=== PATIENT | female | born 2000 ===

== ENCOUNTER 2019-05-09 13:46 | Emergency (ER) | payer SELFPAY ==
[2019-05-09 14:29] VITALS: BP 109/56
--- NOTE | 2019-05-09 14:41 | Event Note ---
Date: 05/09/19 c/o low back pain, suprapubic discomfort for the past week. pain is worse with urination. Low back pain started after lifting something heavy. irregular menstrual cycles. H/o per sister in law who is translating for her.
[2019-05-09 14:58] LABS: HCG Qualitative,Urine Negative (Negative)
[2019-05-09 15:00] LABS: Bacteria,Urine 4+ /HPF (Negative); Bilirubin,Urine NEG (Negative); Blood,Urine SM (Negative); Color,Urine Yellow (Yellow); Mucus,Urine 3+ /HPF; Urobilinogen,Urine < 2.0 mg/dL (<2.0); WBC,Urine > 182.0 /HPF (0.0-6.0)
--- NOTE | 2019-05-09 15:55 | XRay Report ---
Examination: Lumbar spine radiograph series, 2 views, 05/09/2019 Clinical information: Low back pain. No history of trauma Comparison: None. Findings: There is gross normal alignment of the lumbar vertebral bodies. Vertebral body height and a lignment is well maintained. No significant bony degenerative changes are noted. Impression: No radiographic evidence of acute bony abnormality of the lumbar spine. Signer Name: Nette Bautista MD Signed: 05/09/2019 3:51 PM Workstation Name: [id number]
--- NOTE | 2019-05-09 16:02 | Emergency Department Report ---
ED Abdominal Pain HPI - General Chief Complaint: Abdominal Pain Stated Complaint: STOMACH PAIN Source: patient Mode of arrival: Ambulatory Limitations: Language Barrier - Related Data Previous Rx's Medication Instructions Recorded Last Taken Type Ibuprofen [Motrin] 800 mg PO Q8HR PRN #15 tablet 05/09/19 Unknown Rx cephALEXin [Keflex] 500 mg PO Q12HR #14 cap 05/09/19 Unknown Rx Allergies Allergy/AdvReac Type Severity Reaction Status Date / Time No Known Allergies Allergy Unverified 05/09/19 13:48 ED Review of Systems ROS: Stated complaint: STOMACH PAIN Other details as noted in HPI ED Past Medical Hx - Past Medical History Previous Medical History?: No Hx Asthma: No - Surgical History Past Surgical History?: Yes Hx Breast Surgery: Yes - Social History Smoking Status: Never Smoker Substance Use Type: None - Medications Home Medications: Home Medications Medication Instructions Recorded Confirmed Last Taken Type Ibuprofen [Motrin] 800 mg PO Q8HR PRN #15 tablet 05/09/19 Unknown Rx cephALEXin [Keflex] 500 mg PO Q12HR #14 cap 05/09/19 Unknown Rx ED Physical Exam - General Limitations: Language Barrier ED Course Vital Signs 05/09/19 14:27 Temperature 97.9 F Pulse Rate 93 H Respiratory 18 Rate Blood Pressure 109/56 O2 Sat by Pulse 98 Oximetry Critical care attestation.: If time is entered above; I have spent that time in minutes in the direct care of this critically ill patient, excluding procedure time. ED Disposition Condition: Stable Instructions: Abdominal Pain (ED) Prescriptions: cephALEXin [Keflex] 500 mg PO Q12HR #14 cap Ibuprofen [Motrin] 800 mg PO Q8HR PRN #15 tablet PRN Reason: Pain, Moderate (4-6) Referrals: JASE MCKAY MD [Primary Care Provider] - 3-5 Days
== END 2019-05-09 16:15 ==
LOC: ED 13:46
DX: R10.9 Unspecified abdominal pain (principal)
CPT/HCPCS: 72100; 81001; 81025

== ENCOUNTER 2019-08-03 20:02 | Emergency (ER) | payer SELFPAY ==
--- NOTE | 2019-08-03 21:10 | Emergency Department Report ---
Blank Doc - Documentation Documentation: 19-year-old female that presents with lower back pain. Stated is about 8 weeks . Denies any vaginal bleeding This initial assessment/diagnostic orders/clinical plan/treatment(s) is/are subject to change based on patient's health status, clinical progression and re-assessment by fellow clinical providers in the ED. Further treatment and workup at subsequent clinical providers discretion. Patient/guardians urged not to elope from the ED as their condition may be serious if not clinically assessed and managed. Initial orders include: 1- Patient sent to [facility] for further evaluation and treatment 3- UA 4- US OB
[2019-08-03 22:00] LABS: Bilirubin,Urine NEG (Negative); Blood,Urine NEG (Negative); Color,Urine Yellow (Yellow); Mucus,Urine 1+ /HPF; Protein,Urine <15 mg/dL mg/dL (Negative); Urobilinogen,Urine < 2.0 mg/dL (<2.0)
[2019-08-04] MEDS ORDERED: FLEXERIL PO ONE (00:09)
--- NOTE | 2019-08-04 00:41 | Emergency Department Report ---
ED Back Pain/Injury HPI - General Chief Complaint: Back Pain/Injury Stated Complaint: 8-9 WEEKS PREG SEVERE BACK PAIN Time Seen by Provider: 08/03/19 21:09 Source: patient (translation by family), family Limitations: No Limitations - History of Present Illness Initial Comments: Patient is a 19-year-old female presents emergency room with complaints of lower back pain that began yesterday. She denies any fall, injury, numbness, weakness, bowel or bladder incontinence, fever, vaginal bleeding, dysuria, vaginal discharge, abdominal pain. She took some Tylenol without much relief. States she is currently 8 or 9 weeks . She does not have an POWER WHEELCHAIR MECHANIC. No past medical history or allergies medications. /P:1/A:0 - Related Data Previous Rx's Medication Instructions Recorded Last Taken Type Ibuprofen [Motrin] 800 mg PO Q8HR PRN #15 tablet 05/09/19 Unknown Rx cephALEXin [Keflex] 500 mg PO Q12HR #14 cap 05/09/19 Unknown Rx Vit-Fe Fumar-FA [ 1 tab PO QDAY #30 tablet 08/04/19 Unknown Rx Vitamin] Allergies Allergy/AdvReac Type Severity Reaction Status Date / Time No Known Allergies Allergy Unverified 05/09/19 13:48 ED Review of Systems ROS: Stated complaint: 8-9 WEEKS PREG SEVERE BACK PAIN Other details as noted in HPI Comment: All other systems reviewed and negative ED Past Medical Hx - Past Medical History Previous Medical History?: No Hx Asthma: No - Surgical History Past Surgical History?: Yes Hx Breast Surgery: Yes Additional Surgical History: Csection x 1 - Social History Smoking Status: Never Smoker - Medications Home Medications: Home Medications Medication Instructions Recorded Confirmed Last Taken Type Ibuprofen [Motrin] 800 mg PO Q8HR PRN #15 tablet 05/09/19 Unknown Rx cephALEXin [Keflex] 500 mg PO Q12HR #14 cap 05/09/19 Unknown Rx Vit-Fe Fumar-FA [ 1 tab PO QDAY #30 tablet 08/04/19 Unknown Rx Vitamin] ED Physical Exam - General Limitations: No Limitations General appearance: alert, in no apparent distress - Head Head exam: Present: atraumatic, normocephalic - Eye Eye exam: Present: normal appearance - ENT ENT exam: Present: mucous membranes moist - Neck Neck exam: Present: normal inspection, full ROM. Absent: tenderness - Respiratory Respiratory exam: Present: normal lung sounds bilaterally. Absent: respiratory distress, wheezes, rales, rhonchi, stridor, chest wall tenderness, accessory muscle use, decreased breath sounds, prolonged expiratory - Cardiovascular Cardiovascular Exam: Present: regular rate, normal rhythm, normal heart sounds. Absent: systolic murmur, diastolic murmur, rubs, gallop - GI/Abdominal GI/Abdominal exam: Present: soft, normal bowel sounds. Absent: distended, tenderness, guarding, rebound, rigid - Back Exam Back exam: Present: normal inspection, full ROM, paraspinal tenderness (bilateral lumbar paraspinal muscular TTP, no midline C-spine, T-spine, or L- spine tenderness, no step offs, no deformities). Absent: vertebral tenderness - Neurological Exam Neurological exam: Present: alert, oriented X3, CN II-XII intact, normal gait. Absent: motor sensory deficit - Psychiatric Psychiatric exam: Present: normal affect, normal mood - Skin Skin exam: Present: warm, dry, intact ED Course Vital Signs 08/03/19 08/04/19 20:36 03:06 Temperature 97.9 F Pulse Rate 61 66 Respiratory 16 16 Rate Blood Pressure 102/53 99/47 [Right] O2 Sat by Pulse 100 100 Oximetry ED Medical Decision Making - Lab Data Lab Results 08/03/19 08/03/19 Range/Units 21:12 21:24 HCG, Quant [id number] H (0-4) mIU/mL Urine Color Yellow (Yellow) Urine Turbidity Clear (Clear) Urine pH 5.0 (5.0-7.0) Ur Specific [place] 1.014 (1.003-1.030) Urine Protein <15 mg/dl (Negative) mg/dL Urine Glucose (UA) Neg (Negative) mg/dL Urine Ketones Neg (Negative) mg/dL Urine Blood Neg (Negative) Urine Nitrite Neg (Negative) Urine Bilirubin Neg (Negative) Urine Urobilinogen < 2.0 (<2.0) mg/dL Ur Leukocyte Esterase Neg (Negative) Urine WBC (Auto) 1.0 (0.0-6.0) /HPF Urine RBC (Auto) 1.0 (0.0-6.0) /HPF U Epithel Cells (Auto) 2.0 (0-13.0) /HPF Urine Mucus 1+ /HPF - Radiology Data Radiology results: report reviewed ULTRASOUND OBSTETRIC Indication: back pains with . Findings: There is a single, living intrauterine . [place]-rump length = 3.6 cm = 10 weeks, 3 day(s). heart rate is 163 beats per minute. The ovaries are normal. There is no free fluid. Impression: Single, living intrauterine with estimated sonographic age of 11 weeks, 4 day(s). Signer Name: Joey Hanson MD Signed: 08/04/2019 1:42 AM Workstation Name: [id number] Transcribed By: JACLYN Dictated By: Joey Hanson MD Electronically Authenticated By: Joey Hanson MD Signed Date/Time: 08/04/19 0142 - Medical Decision Making Patient is a 19-year-old female presents emergency room with complaints of lower back pain that began yesterday. She denies any fall, injury, numbness, weakness, bowel or bladder incontinence, fever, vaginal bleeding, dysuria, vaginal discharge, abdominal pain. She took some Tylenol without much relief. States she is currently 8 or 9 weeks . She does not have an POWER WHEELCHAIR MECHANIC. No past medical history or allergies medications. /P:1/A:0. vitals are normal on exam: bilateral lumbar paraspinal muscular TTP, no midline C-spine, T-spine, or L-spine tenderness, no step offs, no deformities, no focal neuro deficits. UA without evidence of UTI. OB US shows: Single, living intrauterine with estimated sonographic age of 11 weeks, 4 day(s). pt given 5mg of flexeril and symptoms improved. discussed all results with pt. advised pt to Please increase your water intake and take a daily vitamin [id number]. May use ice packs, heating pad, rest, epsom salt bath. Take Tylenol for any discomfort. Follow-up with a POWER WHEELCHAIR MECHANIC in the next 2-3 days to receive your care, listed several clinics below. Return to the emergency room for any new or worsening symptoms. all interpretation was performed by her mother - Differential Diagnosis strain, sprain, sciatica, UTI, IUP, ectopic, ovarian cyst, subchorionic hem Critical care attestation.: If time is entered above; I have spent that time in minutes in the direct care of this critically ill patient, excluding procedure time. ED Disposition Clinical Impression: Lower back pain Qualifiers: Chronicity: acute Back pain laterality: bilateral Sciatica presence: without sciatica Qualified Code(s): M54.5 - Low back pain Qualifiers: Weeks of gestation: 11 weeks Qualified Code(s): Z3A.11 - 11 weeks gestation of Disposition: DC-01 TO HOME OR SELFCARE Is pt being admited?: No Does the pt Need Aspirin: No Condition: Stable Instructions: (ED), Low Back Strain (ED) Additional Instructions: Please increase your water intake and take a daily vitamin [id number]. May use ice packs, heating pad, rest, epsom salt bath. Take Tylenol for any discomfort. Follow-up with a POWER WHEELCHAIR MECHANIC in the next 2-3 days to receive your care, listed several clinics below. Return to the emergency room for any new or worsening symptoms. Prescriptions: Vit-Fe Fumar-FA [ Vitamin] 1 tab PO QDAY #30 tablet Referrals: [facility] [Provider Group] - 2-3 Days [facility] [Provider Group] - 2-3 Days [facility] [Provider Group] - 2-3 Days Forms: Work/School Release Form(ED) Time of Disposition: 02:17 Print Language: SINHALA
--- NOTE | 2019-08-04 01:47 | Ultrasound Report ---
ULTRASOUND OBSTETRIC Indication: back pains with . Findings: There is a single, living intrauterine . [place]-rump length = 3.6 cm = 10 weeks, 3 day(s). heart rate is 163 beats per minute. The ovaries are normal. There is no free fluid. Impression: Single, living intrauterine with estimated sonographic age of 11 weeks, 4 day(s). Signer Name: Joey Hanson MD Signed: 08/04/2019 1:42 AM Workstation Name: [email or web address]
[2019-08-04 03:06] VITALS: BP 99/47
== END 2019-08-04 03:06 | disposition home or self-care (01) ==
LOC: ED 20:02
DX: O9A.211 Injury, poisoning and certain other consequences of external causes complicating pregnancy, first trimester (principal); M54.5 Low back pain; Z79.899 Other long term (current) drug therapy; Z3A.11 11 weeks gestation of pregnancy
CPT/HCPCS: 36415; 76801; 76817; 81001; 84702; 99284

== ENCOUNTER 2020-02-26 23:21 | Outpatient (CLI) | payer OTHER ==
[2020-02-27 00:33] VITALS: BP 119/72
[2020-02-27] MEDS ORDERED: LACTATED RINGERS 1,000 ML IV SCH (02:00)
== END 2020-02-27 02:59 | disposition home or self-care (01) ==
LOC: TRG 23:21 → APU 23:22 → TRG 02-27 02:59
PROVIDERS: ATTEND Obstetrics & Gynecology
DX: O47.03 False labor before 37 completed weeks of gestation, third trimester (principal); Z3A.39 39 weeks gestation of pregnancy
CPT/HCPCS: 59025

== ENCOUNTER 2020-02-29 17:19 | Outpatient (CLI) | payer OTHER ==
[2020-02-29 21:48] VITALS: BP 101/65
--- NOTE | 2020-02-29 23:07 | Ultrasound Report ---
Limited OB ultrasound INDICATION: , evaluate amniotic fluid index FINDINGS: Single intrauterine is identified. The fetus is in a cephalic presentation. Amnio tic fluid index is 9.3 cm which is within normal limits. The heart rate is 133 bpm. IMPRESSION: Amniotic fluid index is 9.3 cm. BIOPHYSICAL PROFILE INDICATION: COMPARISON: None FINDINGS: breathing movement: 2/2 movement: 2/2 posture and tone: 2/2 Qualitative amniotic fluid volume: 2/2 IMPRESSION: Total score for biophysical profile is 8/8 heart rate is 133 bpm Signer Name: Stan Johnson MD Signed: 02/29/2020 11:02 PM Workstation Name: [id number]
== END 2020-02-29 22:15 | disposition home or self-care (01) ==
LOC: TRG 17:19 → APU 17:20 → TRG 22:15
PROVIDERS: ATTEND Obstetrics & Gynecology
DX: O09.893 Supervision of other high risk pregnancies, third trimester (principal); Z3A.40 40 weeks gestation of pregnancy
CPT/HCPCS: 59025; 76815; 76819

== ENCOUNTER 2020-03-01 10:14 | Inpatient (IN) | payer OTHER ==
[2020-03-01] MEDS ORDERED: LACTATED RINGERS 1,000 ML ONE (11:01)
[2020-03-01 11:49] LABS: Basophils % (Auto) 0.3 % (0.0-1.8); Eosinophils # (Auto) 0.1 K/mm3 (0.0-0.4); Eosinophils % (Auto) 1.1 % (0.0-4.3); Hematocrit 37.2 % (30.3-42.9); Hemoglobin 12.1 gm/dl (10.1-14.3); Lymphocytes # (Auto) 2.1 K/mm3 (1.2-5.4); Lymphocytes % (Auto) 23.2 % (13.4-35.0); Mean Corpuscular HGB Conc 33 % (30-34); Mean Corpuscular Volume 88 fl (79-97); Monocytes # (Auto) 0.6 K/mm3 (0.0-0.8); Monocytes % (Auto) 6.9 % (0.0-7.3); Platelet Count 250 K/mm3 (140-440); Red Blood Count 4.23 M/mm3 (3.65-5.03); Red Cell Distribution Width 13.9 % (13.2-15.2)
[2020-03-01] MEDS: LACTATED RINGERS 1,000 ML IV SCH ×3 (11:56→18:34)
[2020-03-01] MEDS ORDERED: AMPICILLIN/NS 2 GM/100 ML 2 GM/100 ML BAG IV ONE (11:58)
[2020-03-01] MEDS ORDERED: TERBUTALINE 1 MG/1 ML INJ IVP PRN (11:58)
[2020-03-01] MEDS ORDERED: MINERAL OIL 30 ML ORAL LIQD PO PRN (11:58)
[2020-03-01] MEDS ORDERED: BUTORPHANOL 2 MG/1 ML INJ IV PRN ×2 (11:58)
[2020-03-01] MEDS ORDERED: ePHEDrine SULFATE 50 MG/1 ML INJ IV PRN ×2 (11:58→13:54)
[2020-03-01] MEDS ORDERED: TERBUTALINE 1 MG/1 ML INJ SUB-Q PRN (11:58)
[2020-03-01] MEDS ORDERED: LIDOCAINE (2%) 20 MG/1 ML VIAL 20 ML MDV INFILTRATI ONE (11:58)
[2020-03-01] MEDS ORDERED: LACTATED RINGERS 1,000 ML IV SCH (12:00)
[2020-03-01] MEDS ORDERED: OXYTOCIN DRIP 30 UNITS/500 ML BAG IV SCH ×2 (12:00)
[2020-03-01] MEDS ORDERED: OXYTOCIN 20 UNIT/1000ML DRIP 20 UNITS/1,000 ML BAG IV SCH (12:00)
[2020-03-01] MEDS ORDERED: fentaNYL 100 MCG/2 ML INJ IV ONE (13:00)
--- NOTE | 2020-03-01 13:23 | History and Physical Report ---
History of Present Illness Date of examination: 03/01/20 Date of admission: 03/01/20 12:15 Chief complaint: Contractions, previous c/section desires TOLAC Past History Past Surgical History: section - Obstetrical History : 2 Medications and Allergies Allergies Allergy/AdvReac Type Severity Reaction Status Date / Time No Known Allergies Allergy Verified 03/01/20 11:10 Home Medications Medication Instructions Recorded Confirmed Last Taken Type Ibuprofen [Motrin] 800 mg PO Q8HR PRN #15 tablet 05/09/19 03/01/20 8 Months Ago Rx ~07/02/19 800 mg cephALEXin [Keflex] 500 mg PO Q12HR #14 cap 05/09/19 03/01/20 1 Day Ago Rx ~02/29/20 500 mg Vit-Fe Fumar-FA [ 1 tab PO QDAY #30 tablet 08/04/19 03/01/20 1 Day Ago Rx Vitamin] ~02/29/20 1 tab Active Meds: Active Medications Butorphanol Tartrate (Stadol) 1 mg IV Q2H PRN PRN Reason: Pain, Moderate(4-6) LABOR PAIN Butorphanol Tartrate (Stadol) 2 mg IV Q2H PRN PRN Reason: Pain , Severe (7-10) Ephedrine Sulfate (Ephedrine Sulfate) 10 mg IV Q2M PRN PRN Reason: Hypotension Lactated Ringer's (Lactated Ringers) 1,000 mls @ 125 mls/hr IV DIRECT SUSY Last Admin: 03/01/20 12:23 Dose: 125 mls/hr Documented by: Oxytocin/Sodium Chloride (Pitocin/Ns 20 Unit/1000ml Drip) 20 units in 1,000 mls @ 125 mls/hr IV DIRECT SUSY Oxytocin/Sodium Chloride (Pitocin/Ns 30 Unit/500ml) 30 units in 500 mls @ 1 mls/hr IV TITR SUSY; Protocol Oxytocin/Sodium Chloride (Pitocin/Ns 30 Unit/500ml) 30 units in 500 mls @ 0 mls/hr IV TITR SUSY; Protocol Mineral Oil (Mineral Oil) 30 ml PO QHS PRN PRN Reason: Constipation Terbutaline Sulfate (Brethine) 0.25 mg SUB-Q ONCE PRN PRN Reason: Hyperstimulation/Hypertonicity Terbutaline Sulfate (Brethine) 0.25 mg IVP ONCE PRN PRN Reason: Hyperstimulation/Hypertonicity - Vital Signs Vital signs: Vital Signs Pulse Pulse Ox 80 100 03/01/20 11:06 03/01/20 11:06 Temp Pulse Resp BP Pulse Ox 97.6 F 85 20 114/68 100 03/01/20 11:11 03/01/20 13:20 03/01/20 11:11 03/01/20 13:20 03/01/20 11:56 - Physical Exam Breasts: Positive: deferred Cardiovascular: Regular rate Lungs: Positive: Clear to auscultation Abdomen: Positive: normal appearance, normal bowel sounds - Obstetrical FHR: category 1 Uterine Contraction Monitor Mode: External Cervical Dilatation: 2 Cervical Effacement Percentage: 50 station: -2 Results Result Diagrams: 03/01/20 11:15 All other labs normal. Assessment and Plan epidural trial of labor labs GBS prophylaxis expect physician in house Roel ROJAS
[2020-03-01] MEDS ORDERED: NALOXONE 2 MG/2 ML INJ IV PRN (13:54)
[2020-03-01 14:13] LABS: Hematocrit 33.3 % (30.3-42.9); Mean Corpuscular HGB Conc 33 % (30-34); Mean Corpuscular Volume 88 fl (79-97); Platelet Count 233 K/mm3 (140-440); Red Cell Distribution Width 14.1 % (13.2-15.2)
[2020-03-01] MEDS: fentaNYL-BUPIV 2 MCG/ML-0.125% 200 MCG/100 ML BAG EPIDURAL SCH ×2 (14:56→22:57)
--- NOTE | 2020-03-01 15:20 | Progress Note ---
Subjective - Subjective Date of service: 03/01/20 Principal diagnosis: TOLAC Interval history: 20yo , TOLAC SP epidural on oxyocin per protocol cervix 2cm,80%/-1 AROM thin meconium with no complications FHT 125 baseline,moderate variability,+ve accels: Category 1 Ali Chuk: Q1-2 minutes Maternal/ well-being reassuring overall. Continue current management. Anna Leonard MD Objective - Vital Signs Vital Signs: Vital Signs - 12hr 03/01/20 03/01/20 03/01/20 11:06 11:07 11:11 Temperature 97.6 F Pulse Rate 80 80 89 Respiratory 20 Rate Blood Pressure 107/60 Blood Pressure 107/60 [Right] O2 Sat by Pulse 100 99 Oximetry 03/01/20 03/01/20 03/01/20 11:16 11:21 11:26 Temperature Pulse Rate 72 75 79 Respiratory Rate Blood Pressure Blood Pressure [Right] O2 Sat by Pulse 100 99 100 Oximetry 03/01/20 03/01/20 03/01/20 11:31 11:36 11:41 Temperature Pulse Rate 75 70 79 Respiratory Rate Blood Pressure Blood Pressure [Right] O2 Sat by Pulse 100 100 99 Oximetry 03/01/20 03/01/20 03/01/20 11:46 11:51 11:52 Temperature Pulse Rate 80 79 78 Respiratory Rate Blood Pressure Blood Pressure [Right] O2 Sat by Pulse 100 100 88 Oximetry 03/01/20 03/01/20 03/01/20 11:56 12:19 12:50 Temperature Pulse Rate 85 68 66 Respiratory Rate Blood Pressure 107/69 109/68 Blood Pressure [Right] O2 Sat by Pulse 100 Oximetry 03/01/20 03/01/20 03/01/20 13:20 13:48 13:51 Temperature Pulse Rate 85 67 80 Respiratory Rate Blood Pressure 114/68 117/74 Blood Pressure [Right] O2 Sat by Pulse 100 Oximetry 03/01/20 03/01/20 03/01/20 13:53 13:57 13:58 Temperature Pulse Rate 84 80 72 Respiratory Rate Blood Pressure 118/75 Blood Pressure [Right] O2 Sat by Pulse 100 100 Oximetry 03/01/20 03/01/20 03/01/20 14:00 14:03 14:06 Temperature 97.9 F Pulse Rate 78 75 67 Respiratory 18 Rate Blood Pressure 126/76 121/66 Blood Pressure [Right] O2 Sat by Pulse 87 100 Oximetry 03/01/20 03/01/20 03/01/20 14:08 14:11 14:13 Temperature Pulse Rate 76 75 100 H Respiratory Rate Blood Pressure 126/71 Blood Pressure [Right] O2 Sat by Pulse 100 82 L 100 Oximetry 03/01/20 03/01/20 03/01/20 14:18 14:21 14:23 Temperature Pulse Rate 83 86 75 Respiratory Rate Blood Pressure 116/57 Blood Pressure [Right] O2 Sat by Pulse 100 100 Oximetry 03/01/20 03/01/20 03/01/20 14:26 14:28 14:31 Temperature Pulse Rate 74 78 66 Respiratory Rate Blood Pressure 114/64 110/61 Blood Pressure [Right] O2 Sat by Pulse 100 Oximetry 03/01/20 03/01/20 03/01/20 14:33 14:36 14:38 Temperature Pulse Rate 68 71 77 Respiratory Rate Blood Pressure 102/60 Blood Pressure [Right] O2 Sat by Pulse 100 97 Oximetry 03/01/20 03/01/20 03/01/20 14:41 14:43 14:47 Temperature Pulse Rate 71 72 72 Respiratory Rate Blood Pressure 108/65 107/58 Blood Pressure [Right] O2 Sat by Pulse 100 Oximetry 03/01/20 03/01/20 03/01/20 14:48 14:52 14:53 Temperature Pulse Rate 71 90 76 Respiratory Rate Blood Pressure 104/60 Blood Pressure [Right] O2 Sat by Pulse 100 100 Oximetry 03/01/20 03/01/20 03/01/20 14:57 14:58 15:01 Temperature Pulse Rate 78 71 69 Respiratory Rate Blood Pressure 108/57 108/60 Blood Pressure [Right] O2 Sat by Pulse 100 Oximetry 03/01/20 03/01/20 03/01/20 15:03 15:08 15:13 Temperature Pulse Rate 69 79 67 Respiratory Rate Blood Pressure Blood Pressure [Right] O2 Sat by Pulse 100 100 100 Oximetry - Labs Labs: Laboratory Results - last 24 hr 03/01/20 03/01/20 03/01/20 11:15 11:15 11:15 WBC 8.9 RBC 4.23 Hgb 12.1 Hct 37.2 MCV 88 MCH 29 MCHC 33 RDW 13.9 Plt Count 250 Lymph % (Auto) 23.2 Coal % (Auto) 6.9 Eos % (Auto) 1.1 Baso % (Auto) 0.3 Lymph # 2.1 Coal # 0.6 Eos # 0.1 Baso # 0.0 Seg Neutrophils % 68.5 Seg Neutrophils # 6.1 Syphilis IgG Antibody Non-reactive Blood Type AB POSITIVE Antibody Screen Negative 03/01/20 13:20 WBC 9.3 RBC 3.80 Hgb 11.0 Hct 33.3 MCV 88 MCH 29 MCHC 33 RDW 14.1 Plt Count 233 Lymph % (Auto) Coal % (Auto) Eos % (Auto) Baso % (Auto) Lymph # Coal # Eos # Baso # Seg Neutrophils % Seg Neutrophils # Syphilis IgG Antibody Blood Type Antibody Screen
--- NOTE | 2020-03-01 15:30 | Anesthesia Consultation ---
Anesthesia Consult and Med Hx Date of service: 03/01/20 - Airway Anesthetic Teeth Evaluation: Good ROM Head & Neck: Adequate Mental/Hyoid Distance: Adequate Mallampati Class: Class II Intubation Access Assessment: Probably Good - Pulmonary Exam CTA: Yes - Cardiac Exam Cardiac Exam: RRR - Pre-Operative Health Status ASA Pre-Surgery Classification: ASA2 Proposed Anesthetic Plan: Epidural - Pulmonary Hx Smoking: No Hx Asthma: No Hx Respiratory Symptoms: No SOB: No COPD: No Home Oxygen Therapy: No Hx Pneumonia: No Hx Sleep Apnea: No - Cardiovascular System Hx Hypertension: No Hx Coronary Artery Disease: No Hx Heart Attack/AMI: No Hx Angina: No Hx Percutaneous Transluminal Coronary Angioplasty (PTCA): No Hx Cardia Arrhythmia: No Hx Pacemaker: No Hx Internal Defibrillator: No Hx Valvular Heart Disease: No Hx Heart Murmur: No Hx Peripheral Vascular Disease: No - Central Nervous System Hx Neuromuscular Disorder: No Hx Seizures: No CVA: No Hx Back Pain: No Hx Psychiatric Problems: No - Gastrointestinal Hx Ulcer: No Hx Gastroesophageal Reflux Disease: No - Endocrine Hx Renal Disease: No Hx End Stage Renal Disease: No Hx Cirrhosis: No Hx Liver Disease: No Hx Insulin Dependent Diabetes: No Hx Non-Insulin Dependent Diabetes: No Hx Thyroid Disease: No Hx Hypothyroidism: No Hx Hyperthyroidism: No - Hematic Hx Anemia: No Hx Sickle Cell Disease: No - Other Systems Hx Alcohol Use: No Hx Substance Use: No Hx Cancer: No Hx Obesity: No - Additional Comments Anesthesia Medical History Comments: PSH:
--- NOTE | 2020-03-01 15:39 | Progress Note ---
Labor Epidural - Labor Epidural Start Time: 14:04 Stop Time: 14:15 Performed by:: ULICES MORIN Procedure: Patient is requesting a laboring epidural for laboring pain. Patient IDed, H&P reviewed, all questions and concerns were answered, and consent was signed. Timeout was performed at bedside. Patient in sitting position. Sterile prep and drape was performed. [5] ml of 1% lidocaine skin wheal at L[3]- L [4]. 18- gauge Touhy epidural needle was advanced to loss of resistance with air technique 6cm. Negative CSF negative blood. Epidural catheter advanced to [12] centimeters. [negative] Aspiration [negative] test dose. Sterile dressing applied. Patient tolerated procedure.
--- NOTE | 2020-03-01 17:39 | Progress Note ---
Subjective - Subjective Date of service: 03/01/20 Principal diagnosis: TOLAC Interval history: 20yo , TOLAC on oxyocin per protocol at 4mu/min cervix cm,80%/-1 FHT 125 baseline,moderate variability,+ve accels: Category 1 [place]: Q1-2 minutes Maternal/ well-being reassuring overall. Continue current management. Anna Leonard MD Objective - Vital Signs Vital Signs: Vital Signs - 12hr 03/01/20 03/01/20 03/01/20 11:06 11:07 11:11 Temperature 97.6 F Pulse Rate 80 80 89 Respiratory 20 Rate Blood Pressure 107/60 Blood Pressure 107/60 [Right] O2 Sat by Pulse 100 99 Oximetry 03/01/20 03/01/20 03/01/20 11:16 11:21 11:26 Temperature Pulse Rate 72 75 79 Respiratory Rate Blood Pressure Blood Pressure [Right] O2 Sat by Pulse 100 99 100 Oximetry 03/01/20 03/01/20 03/01/20 11:31 11:36 11:41 Temperature Pulse Rate 75 70 79 Respiratory Rate Blood Pressure Blood Pressure [Right] O2 Sat by Pulse 100 100 99 Oximetry 03/01/20 03/01/20 03/01/20 11:46 11:51 11:52 Temperature Pulse Rate 80 79 78 Respiratory Rate Blood Pressure Blood Pressure [Right] O2 Sat by Pulse 100 100 88 Oximetry 03/01/20 03/01/20 03/01/20 11:56 12:19 12:50 Temperature Pulse Rate 85 68 66 Respiratory Rate Blood Pressure 107/69 109/68 Blood Pressure [Right] O2 Sat by Pulse 100 Oximetry 03/01/20 03/01/20 03/01/20 13:20 13:48 13:51 Temperature Pulse Rate 85 67 80 Respiratory Rate Blood Pressure 114/68 117/74 Blood Pressure [Right] O2 Sat by Pulse 100 Oximetry 03/01/20 03/01/20 03/01/20 13:53 13:57 13:58 Temperature Pulse Rate 84 80 72 Respiratory Rate Blood Pressure 118/75 Blood Pressure [Right] O2 Sat by Pulse 100 100 Oximetry 03/01/20 03/01/20 03/01/20 14:00 14:03 14:06 Temperature 97.9 F Pulse Rate 78 75 67 Respiratory 18 Rate Blood Pressure 126/76 121/66 Blood Pressure [Right] O2 Sat by Pulse 87 100 Oximetry 03/01/20 03/01/20 03/01/20 14:08 14:11 14:13 Temperature Pulse Rate 76 75 100 H Respiratory Rate Blood Pressure 126/71 Blood Pressure [Right] O2 Sat by Pulse 100 82 L 100 Oximetry 03/01/20 03/01/20 03/01/20 14:18 14:21 14:23 Temperature Pulse Rate 83 86 75 Respiratory Rate Blood Pressure 116/57 Blood Pressure [Right] O2 Sat by Pulse 100 100 Oximetry 03/01/20 03/01/20 03/01/20 14:26 14:28 14:31 Temperature Pulse Rate 74 78 66 Respiratory Rate Blood Pressure 114/64 110/61 Blood Pressure [Right] O2 Sat by Pulse 100 Oximetry 03/01/20 03/01/20 03/01/20 14:33 14:36 14:38 Temperature Pulse Rate 68 71 77 Respiratory Rate Blood Pressure 102/60 Blood Pressure [Right] O2 Sat by Pulse 100 97 Oximetry 03/01/20 03/01/20 03/01/20 14:41 14:43 14:47 Temperature Pulse Rate 71 72 72 Respiratory Rate Blood Pressure 108/65 107/58 Blood Pressure [Right] O2 Sat by Pulse 100 Oximetry 03/01/20 03/01/20 03/01/20 14:48 14:52 14:53 Temperature Pulse Rate 71 90 76 Respiratory Rate Blood Pressure 104/60 Blood Pressure [Right] O2 Sat by Pulse 100 100 Oximetry 03/01/20 03/01/20 03/01/20 14:57 14:58 15:01 Temperature Pulse Rate 78 71 69 Respiratory Rate Blood Pressure 108/57 108/60 Blood Pressure [Right] O2 Sat by Pulse 100 Oximetry 03/01/20 03/01/20 03/01/20 15:03 15:08 15:13 Temperature Pulse Rate 69 79 67 Respiratory Rate Blood Pressure Blood Pressure [Right] O2 Sat by Pulse 100 100 100 Oximetry 03/01/20 03/01/20 03/01/20 15:18 15:23 15:28 Temperature Pulse Rate 68 69 73 Respiratory Rate Blood Pressure Blood Pressure [Right] O2 Sat by Pulse 100 99 99 Oximetry 03/01/20 03/01/20 03/01/20 15:33 15:38 15:43 Temperature Pulse Rate 83 73 74 Respiratory Rate Blood Pressure 90/51 Blood Pressure [Right] O2 Sat by Pulse 99 99 100 Oximetry 03/01/20 03/01/20 03/01/20 15:48 15:53 15:58 Temperature Pulse Rate 71 82 74 Respiratory Rate Blood Pressure Blood Pressure [Right] O2 Sat by Pulse 99 100 99 Oximetry 03/01/20 03/01/20 03/01/20 16:08 16:37 17:07 Temperature Pulse Rate 70 68 69 Respiratory Rate Blood Pressure 97/53 94/52 89/52 Blood Pressure [Right] O2 Sat by Pulse Oximetry 03/01/20 03/01/20 17:08 17:37 Temperature 97.3 F L Pulse Rate 78 Respiratory 18 Rate Blood Pressure 101/61 Blood Pressure [Right] O2 Sat by Pulse Oximetry - Labs Labs: Laboratory Results - last 24 hr 03/01/20 03/01/20 03/01/20 11:15 11:15 11:15 WBC 8.9 RBC 4.23 Hgb 12.1 Hct 37.2 MCV 88 MCH 29 MCHC 33 RDW 13.9 Plt Count 250 Lymph % (Auto) 23.2 [place] % (Auto) 6.9 Eos % (Auto) 1.1 Baso % (Auto) 0.3 Lymph # 2.1 [place] # 0.6 Eos # 0.1 Baso # 0.0 Seg Neutrophils % 68.5 Seg Neutrophils # 6.1 Syphilis IgG Antibody Non-reactive Blood Type AB POSITIVE Antibody Screen Negative 03/01/20 13:20 WBC 9.3 RBC 3.80 Hgb 11.0 Hct 33.3 MCV 88 MCH 29 MCHC 33 RDW 14.1 Plt Count 233 Lymph % (Auto) [place] % (Auto) Eos % (Auto) Baso % (Auto) Lymph # [place] # Eos # Baso # Seg Neutrophils % Seg Neutrophils # Syphilis IgG Antibody Blood Type Antibody Screen
--- NOTE | 2020-03-01 21:09 | Progress Note ---
Subjective - Subjective Date of service: 03/01/20 Principal diagnosis: TOLAC Interval history: 20yo , TOLAC on oxyocin per protocol at 4mu/min cervix 4-5cm,80%/0 FHT 125 baseline,moderate variability,+ve accels, variables with early component noted: Category 1 [place]: Q1-2 minutes Maternal/ well-being reassuring overall. Continue current management. Increase pitocin to 6mu/scott Anna Leonard MD Objective - Vital Signs Vital Signs: Vital Signs - 12hr 03/01/20 03/01/20 03/01/20 11:06 11:07 11:11 Temperature 97.6 F Pulse Rate 80 80 89 Respiratory 20 Rate Blood Pressure 107/60 Blood Pressure 107/60 [Right] O2 Sat by Pulse 100 99 Oximetry 03/01/20 03/01/20 03/01/20 11:16 11:21 11:26 Temperature Pulse Rate 72 75 79 Respiratory Rate Blood Pressure Blood Pressure [Right] O2 Sat by Pulse 100 99 100 Oximetry 03/01/20 03/01/20 03/01/20 11:31 11:36 11:41 Temperature Pulse Rate 75 70 79 Respiratory Rate Blood Pressure Blood Pressure [Right] O2 Sat by Pulse 100 100 99 Oximetry 03/01/20 03/01/20 03/01/20 11:46 11:51 11:52 Temperature Pulse Rate 80 79 78 Respiratory Rate Blood Pressure Blood Pressure [Right] O2 Sat by Pulse 100 100 88 Oximetry 03/01/20 03/01/20 03/01/20 11:56 12:19 12:50 Temperature Pulse Rate 85 68 66 Respiratory Rate Blood Pressure 107/69 109/68 Blood Pressure [Right] O2 Sat by Pulse 100 Oximetry 03/01/20 03/01/20 03/01/20 13:20 13:48 13:51 Temperature Pulse Rate 85 67 80 Respiratory Rate Blood Pressure 114/68 117/74 Blood Pressure [Right] O2 Sat by Pulse 100 Oximetry 03/01/20 03/01/20 03/01/20 13:53 13:57 13:58 Temperature Pulse Rate 84 80 72 Respiratory Rate Blood Pressure 118/75 Blood Pressure [Right] O2 Sat by Pulse 100 100 Oximetry 03/01/20 03/01/20 03/01/20 14:00 14:03 14:06 Temperature 97.9 F Pulse Rate 78 75 67 Respiratory 18 Rate Blood Pressure 126/76 121/66 Blood Pressure [Right] O2 Sat by Pulse 87 100 Oximetry 03/01/20 03/01/20 03/01/20 14:08 14:11 14:13 Temperature Pulse Rate 76 75 100 H Respiratory Rate Blood Pressure 126/71 Blood Pressure [Right] O2 Sat by Pulse 100 82 L 100 Oximetry 03/01/20 03/01/20 03/01/20 14:18 14:21 14:23 Temperature Pulse Rate 83 86 75 Respiratory Rate Blood Pressure 116/57 Blood Pressure [Right] O2 Sat by Pulse 100 100 Oximetry 03/01/20 03/01/20 03/01/20 14:26 14:28 14:31 Temperature Pulse Rate 74 78 66 Respiratory Rate Blood Pressure 114/64 110/61 Blood Pressure [Right] O2 Sat by Pulse 100 Oximetry 03/01/20 03/01/20 03/01/20 14:33 14:36 14:38 Temperature Pulse Rate 68 71 77 Respiratory Rate Blood Pressure 102/60 Blood Pressure [Right] O2 Sat by Pulse 100 97 Oximetry 03/01/20 03/01/20 03/01/20 14:41 14:43 14:47 Temperature Pulse Rate 71 72 72 Respiratory Rate Blood Pressure 108/65 107/58 Blood Pressure [Right] O2 Sat by Pulse 100 Oximetry 03/01/20 03/01/20 03/01/20 14:48 14:52 14:53 Temperature Pulse Rate 71 90 76 Respiratory Rate Blood Pressure 104/60 Blood Pressure [Right] O2 Sat by Pulse 100 100 Oximetry 03/01/20 03/01/20 03/01/20 14:57 14:58 15:01 Temperature Pulse Rate 78 71 69 Respiratory Rate Blood Pressure 108/57 108/60 Blood Pressure [Right] O2 Sat by Pulse 100 Oximetry 03/01/20 03/01/20 03/01/20 15:03 15:08 15:13 Temperature Pulse Rate 69 79 67 Respiratory Rate Blood Pressure Blood Pressure [Right] O2 Sat by Pulse 100 100 100 Oximetry 03/01/20 03/01/20 03/01/20 15:18 15:23 15:28 Temperature Pulse Rate 68 69 73 Respiratory Rate Blood Pressure Blood Pressure [Right] O2 Sat by Pulse 100 99 99 Oximetry 03/01/20 03/01/20 03/01/20 15:33 15:38 15:43 Temperature Pulse Rate 83 73 74 Respiratory Rate Blood Pressure 90/51 Blood Pressure [Right] O2 Sat by Pulse 99 99 100 Oximetry 03/01/20 03/01/20 03/01/20 15:48 15:53 15:58 Temperature Pulse Rate 71 82 74 Respiratory Rate Blood Pressure Blood Pressure [Right] O2 Sat by Pulse 99 100 99 Oximetry 03/01/20 03/01/20 03/01/20 16:08 16:37 17:07 Temperature Pulse Rate 70 68 69 Respiratory Rate Blood Pressure 97/53 94/52 89/52 Blood Pressure [Right] O2 Sat by Pulse Oximetry 03/01/20 03/01/20 03/01/20 17:08 17:37 18:08 Temperature 97.3 F L Pulse Rate 78 77 Respiratory 18 Rate Blood Pressure 101/61 90/50 Blood Pressure [Right] O2 Sat by Pulse Oximetry 03/01/20 03/01/20 03/01/20 18:37 19:07 19:38 Temperature Pulse Rate 81 72 68 Respiratory Rate Blood Pressure 98/56 110/64 95/52 Blood Pressure [Right] O2 Sat by Pulse Oximetry 03/01/20 03/01/20 20:07 20:38 Temperature Pulse Rate 74 66 Respiratory Rate Blood Pressure 96/53 99/54 Blood Pressure [Right] O2 Sat by Pulse Oximetry - Labs Labs: Laboratory Results - last 24 hr 03/01/20 03/01/20 03/01/20 11:15 11:15 11:15 WBC 8.9 RBC 4.23 Hgb 12.1 Hct 37.2 MCV 88 MCH 29 MCHC 33 RDW 13.9 Plt Count 250 Lymph % (Auto) 23.2 [place] % (Auto) 6.9 Eos % (Auto) 1.1 Baso % (Auto) 0.3 Lymph # 2.1 [place] # 0.6 Eos # 0.1 Baso # 0.0 Seg Neutrophils % 68.5 Seg Neutrophils # 6.1 Syphilis IgG Antibody Non-reactive Blood Type AB POSITIVE Antibody Screen Negative 03/01/20 13:20 WBC 9.3 RBC 3.80 Hgb 11.0 Hct 33.3 MCV 88 MCH 29 MCHC 33 RDW 14.1 Plt Count 233 Lymph % (Auto) [place] % (Auto) Eos % (Auto) Baso % (Auto) Lymph # [place] # Eos # Baso # Seg Neutrophils % Seg Neutrophils # Syphilis IgG Antibody Blood Type Antibody Screen
--- NOTE | 2020-03-02 00:54 | Progress Note ---
Subjective - Subjective Date of service: 03/02/20 Principal diagnosis: TOLAC Interval history: 20yo , TOLAC on oxyocin per protocol at 6 mu/min cervix 9cm,100%/0 FHT 125 baseline,moderate variability,+ve accels, variables with early component noted: Category 1 [place]: Q1-2 minutes Maternal/ well-being reassuring overall. Continue current management, expect Anna Leonard MD Objective - Vital Signs Vital Signs: Vital Signs - 12hr 03/01/20 03/01/20 03/01/20 13:20 13:48 13:51 Temperature Pulse Rate 85 67 80 Respiratory Rate Blood Pressure 114/68 117/74 O2 Sat by Pulse 100 Oximetry 03/01/20 03/01/20 03/01/20 13:53 13:57 13:58 Temperature Pulse Rate 84 80 72 Respiratory Rate Blood Pressure 118/75 O2 Sat by Pulse 100 100 Oximetry 03/01/20 03/01/20 03/01/20 14:00 14:03 14:06 Temperature 97.9 F Pulse Rate 78 75 67 Respiratory 18 Rate Blood Pressure 126/76 121/66 O2 Sat by Pulse 87 100 Oximetry 03/01/20 03/01/20 03/01/20 14:08 14:11 14:13 Temperature Pulse Rate 76 75 100 H Respiratory Rate Blood Pressure 126/71 O2 Sat by Pulse 100 82 L 100 Oximetry 03/01/20 03/01/20 03/01/20 14:18 14:21 14:23 Temperature Pulse Rate 83 86 75 Respiratory Rate Blood Pressure 116/57 O2 Sat by Pulse 100 100 Oximetry 03/01/20 03/01/20 03/01/20 14:26 14:28 14:31 Temperature Pulse Rate 74 78 66 Respiratory Rate Blood Pressure 114/64 110/61 O2 Sat by Pulse 100 Oximetry 03/01/20 03/01/20 03/01/20 14:33 14:36 14:38 Temperature Pulse Rate 68 71 77 Respiratory Rate Blood Pressure 102/60 O2 Sat by Pulse 100 97 Oximetry 03/01/20 03/01/20 03/01/20 14:41 14:43 14:47 Temperature Pulse Rate 71 72 72 Respiratory Rate Blood Pressure 108/65 107/58 O2 Sat by Pulse 100 Oximetry 03/01/20 03/01/20 03/01/20 14:48 14:52 14:53 Temperature Pulse Rate 71 90 76 Respiratory Rate Blood Pressure 104/60 O2 Sat by Pulse 100 100 Oximetry 03/01/20 03/01/20 03/01/20 14:57 14:58 15:01 Temperature Pulse Rate 78 71 69 Respiratory Rate Blood Pressure 108/57 108/60 O2 Sat by Pulse 100 Oximetry 03/01/20 03/01/20 03/01/20 15:03 15:08 15:13 Temperature Pulse Rate 69 79 67 Respiratory Rate Blood Pressure O2 Sat by Pulse 100 100 100 Oximetry 03/01/20 03/01/20 03/01/20 15:18 15:23 15:28 Temperature Pulse Rate 68 69 73 Respiratory Rate Blood Pressure O2 Sat by Pulse 100 99 99 Oximetry 03/01/20 03/01/20 03/01/20 15:33 15:38 15:43 Temperature Pulse Rate 83 73 74 Respiratory Rate Blood Pressure 90/51 O2 Sat by Pulse 99 99 100 Oximetry 03/01/20 03/01/20 03/01/20 15:48 15:53 15:58 Temperature Pulse Rate 71 82 74 Respiratory Rate Blood Pressure O2 Sat by Pulse 99 100 99 Oximetry 03/01/20 03/01/20 03/01/20 16:08 16:37 17:07 Temperature Pulse Rate 70 68 69 Respiratory Rate Blood Pressure 97/53 94/52 89/52 O2 Sat by Pulse Oximetry 03/01/20 03/01/20 03/01/20 17:08 17:37 18:08 Temperature 97.3 F L Pulse Rate 78 77 Respiratory 18 Rate Blood Pressure 101/61 90/50 O2 Sat by Pulse Oximetry 03/01/20 03/01/20 03/01/20 18:37 19:07 19:38 Temperature Pulse Rate 81 72 68 Respiratory Rate Blood Pressure 98/56 110/64 95/52 O2 Sat by Pulse Oximetry 03/01/20 03/01/20 03/01/20 20:07 20:38 21:08 Temperature Pulse Rate 74 66 109 H Respiratory Rate Blood Pressure 96/53 99/54 106/51 O2 Sat by Pulse Oximetry 03/01/20 03/01/20 03/01/20 21:38 22:08 22:37 Temperature Pulse Rate 79 89 96 H Respiratory Rate Blood Pressure 87/47 105/56 93/55 O2 Sat by Pulse Oximetry 03/01/20 03/01/20 03/02/20 23:09 23:38 00:07 Temperature Pulse Rate 86 82 86 Respiratory Rate Blood Pressure 108/54 104/58 105/57 O2 Sat by Pulse Oximetry 03/02/20 00:37 Temperature Pulse Rate 89 Respiratory Rate Blood Pressure 101/59 O2 Sat by Pulse Oximetry - Labs Labs: Laboratory Results - last 24 hr 03/01/20 03/01/20 03/01/20 11:15 11:15 11:15 WBC 8.9 RBC 4.23 Hgb 12.1 Hct 37.2 MCV 88 MCH 29 MCHC 33 RDW 13.9 Plt Count 250 Lymph % (Auto) 23.2 [place] % (Auto) 6.9 Eos % (Auto) 1.1 Baso % (Auto) 0.3 Lymph # 2.1 [place] # 0.6 Eos # 0.1 Baso # 0.0 Seg Neutrophils % 68.5 Seg Neutrophils # 6.1 Syphilis IgG Antibody Non-reactive Blood Type AB POSITIVE Antibody Screen Negative 03/01/20 13:20 WBC 9.3 RBC 3.80 Hgb 11.0 Hct 33.3 MCV 88 MCH 29 MCHC 33 RDW 14.1 Plt Count 233 Lymph % (Auto) [place] % (Auto) Eos % (Auto) Baso % (Auto) Lymph # [place] # Eos # Baso # Seg Neutrophils % Seg Neutrophils # Syphilis IgG Antibody Blood Type Antibody Screen
[2020-03-02] MEDS ORDERED: METHYLERGONOVINE MALEATE 0.2 MG/ML VIAL IM ONE (02:16)
[2020-03-02] MEDS ORDERED: MAGNESIUM HYDROXIDE (MOM) ORAL LIQD UDC PO PRN (02:51)
[2020-03-02] MEDS ORDERED: ONDANSETRON 4 MG/2 ML INJ IV PRN (02:51)
[2020-03-02] MEDS ORDERED: LANOLIN/ZINC/DIMETHICONE (LANSINOH) 7 GM TP PRN (02:51)
[2020-03-02] MEDS ORDERED: WITCH HAZEL/ GLYCERIN PAD TP PRN (02:51)
[2020-03-02] MEDS ORDERED: ACETAMINOPHEN 325 MG TAB PO PRN (02:51)
[2020-03-02] MEDS ORDERED: PROMETHAZINE 25 MG RECT SUPP PR PRN (02:51)
[2020-03-02] MEDS ORDERED: PROMETHAZINE 25 MG TAB PO PRN (02:51)
[2020-03-02] MEDS ORDERED: diphenhydrAMINE 25 MG CAP PO PRN (02:51)
--- NOTE | 2020-03-02 02:58 | Procedure Note ---
OB Delivery Note - Delivery Date of Delivery: 03/02/20 Surgeon: HIEU MCELROY Estimated blood loss: 500cc - Vaginal Delivery position: OA Intrapartum events: uterine atony (resolved with methergine 0.2mg IMx1 dose) Delivery induction: none Delivery augmentation: rupture of membranes, pitocin Delivery monitor: external FHT, external uterine Route of delivery: (vacuum exraction ) Indicators for instrumentation: nonreassuring FHR tracing Delivery placenta: spontaneous, manual, other Delivery cord: 3 umbilical vessels Episiotomy: midline (second degree) Delivery laceration: none Delivery repair: vicryl Anesthesia: epidural Delivery comments: Patient noted to be complete and +1 station. Oxytocin at 6mu/min. FHT 120bpm. She was encouraged to push. With pushing decelerations were noted to 80bpm for 1 minute with return to baseline and poor maternal pushing effort. I applied the vacuum to 600mmHg and the vertex delivered over a midline episiotomy. There were three pop offs, no excess traction applied. The anterior shoulder delivered spontaneously and the remainder of the delivery was atraumatic. Cord clamped and cut and baby handed to waiting [facility] staff. An intact placenta with three vessel cord delivered manually. The uterus was noted to be atonic with brisk bleeding. Bimanual massage was applied and methergine 0.2mg IM given x1 dose. The episiotomy was repaired with 2-0 and 3-0 vicryl in the usual fashion. The fundus was firm at the completion of delivery. As the patient was a , the uterine cavity was explored and the hysterotomy scar was noted to be intact. All sponge, needle and instrument counts were correctx2. EBL 500ml. Mother and baby stable to . Anna Mcelroy MD
[2020-03-02] MEDS: HYDROcodone/ACETAMINOPHEN 5-325 MG TAB PO PRN ×3 (05:26→20:22)
--- NOTE | 2020-03-02 05:47 | Post Anesthesia Evaluation ---
- Post Anesthesia Evaluation Patient Participated: Yes Airway Patent: Yes Stable Respiratory Function: Yes Nausea/Vomiting: No Temp > 96.8F: Yes Pain Manageable: Yes Adequeate Hydration: Yes Anesthesia Complications: No Block Receding Appropriately: Yes Patient on Ventilator: No
[2020-03-02] MEDS: IBUPROFEN 600 MG TAB PO SCH ×2 (06:47→13:35)
[2020-03-02] MEDS: SENNOSIDES/DOCUSATE SODIUM 8.6/50 MG TAB PO SCH (06:47)
[2020-03-02] MEDS: DOCUSATE SODIUM 100 MG CAP PO SCH ×2 (08:34→21:59)
[2020-03-02 15:25] LABS: Hematocrit 29.2 % (30.3-42.9); Hemoglobin 9.6 gm/dl (10.1-14.3)
[2020-03-03] MEDS: IBUPROFEN 600 MG TAB PO SCH ×2 (06:43→15:33)
[2020-03-03] MEDS: SENNOSIDES/DOCUSATE SODIUM 8.6/50 MG TAB PO SCH (06:54)
[2020-03-03] MEDS ORDERED: BENZOCAINE/MENTHOL 20/0.5% TOP SPRAY 56 GM TP PRN (09:01)
[2020-03-03] MEDS ORDERED: FERROUS SULFATE 325 MG TAB PO SCH (10:00)
--- NOTE | 2020-03-03 10:36 | Progress Note ---
Assessment and Plan - Patient Problems (1) , delivered, current hospitalization Current Visit: Yes Status: Acute Plan to address problem: PPD 2 - stable Continue routine orders Discharge to home today Follow-up at [facility] as needed or in 6 weeks for exam (2) Single live Current Visit: Yes Status: Acute (3) Discomfort at episiotomy site Current Visit: Yes Status: Acute Plan to address problem: Encouraged sitz baths, Dermoplast and Tucks pad as needed (4) Anemia due to blood loss, acute Current Visit: Yes Status: Acute Plan to address problem: Asymptomatic Continue iron therapy Eat iron-rich foods Subjective - Subjective Date of service: 03/03/20 Principal diagnosis: PPD #2; s/p Interval history: see [facility] TECHNIC[facility] - H&P, OB Progress Notes and OB Delivery Procedure Note Patient reports: appetite normal, voiding normally, pain well controlled, ambulating normally, no dizzy ambulation : doing well Objective - Vital Signs Latest vital signs: Vital Signs Temp Pulse Resp BP Pulse Ox 03/03/20 07:44 98.2 F 81 16 105/61 98 03/03/20 00:18 97.8 F 92 H 18 103/49 97 03/02/20 15:49 98.1 F 92 H 18 98/50 98 Intake and Output 03/02/20 03/03/20 03/03/20 23:59 07:59 15:59 Intake Total 480 240 Output Total 450 Balance 30 240 Intake: Oral 480 240 Output: Urine 450 Void 450 Other: Total, Intake Amount 120 240 Total, Output Amount 450 # Voids Void 1 1 - Exam Cardiovascular: Present: Regular rate Lungs: Present: Clear to auscultation Abdomen: Present: normal appearance, soft Vulva: both: laceration/episiotomy (well approximated) Uterus: Present: normal, firm, fundal height below umbilicus Extremities: Present: normal Comments: scant lochia - Labs Labs: Abnormal lab results 03/02/20 Range/Units 14:25 Hgb 9.6 L (10.1-14.3) gm/dl Hct 29.2 L (30.3-42.9) %
--- NOTE | 2020-03-03 10:42 | Discharge Summary ---
Providers - Providers Date of Admission: 03/01/20 12:15 Date of discharge: 03/03/20 Attending physician: HIEU MCELROY MD Primary care physician: DENICE ROLON MD Hospitalization Reason for admission: IUP at term Delivery: Episiotomy: midline Laceration: none Other procedures: none complications: none Discharge diagnosis: IUP at term delivered baby: female Hospital course: Uncomplicated Condition at discharge: Stable Disposition: DC-01 TO HOME OR SELFCARE - Discharge Diagnoses (1) , delivered, current hospitalization Status: Acute (2) Single live Status: Acute (3) Discomfort at episiotomy site Status: Acute Comment: Encouraged Sitz baths at leat every 8 hours as needed as well as Dermoplast spray and Tuck pads as needed (4) Anemia due to blood loss, acute Status: Acute Comment: Asymptomatic Continue ferrous sulfate 325mg by mouth twice daily Eat iron-rich foods Plan - Discharge Medications Prescriptions: Ferrous Sulfate [Feosol 325 MG tab] 325 mg PO BID #30 tablet Ibuprofen [Motrin 600 MG tab] 600 mg PO Q6HR #30 tablet - Provider Discharge Summary Activity: routine, no sex for 6 weeks, no heavy lifting 4 weeks, no strenuous exercise Diet: routine Instructions: routine Additional instructions: [] Smoking cessation referral if applicable(refer to patient education folder for contact #) [] Refer to [facility]'s [facility] Booklet Call your doctor immediately for: * Fever > 100.5 * Heavy vaginal bleeding ( >1 pad per hour) * Severe persistent headache * Shortness of breath * Reddened, hot, painful area to leg or breast * Drainage or odor from incision. * Keep incision clean and dry at all times and follow doctor's instructions regarding bathing/showering - Follow up plan Follow up: DENICE ROLON MD [Primary Care Provider] - 6 Weeks (Follow-up at [facility] as needed or in 6 weeks for exam)
[2020-03-03 16:55] VITALS: BP 98/53
== END 2020-03-03 15:45 | disposition home or self-care (01) | DRG 806 ==
LOC: UNDOADMIN 10:14 → APU 10:14 → LD 12:15 → OB 03-02 05:59
PROVIDERS: ADMIT Obstetrics & Gynecology; ATTEND Obstetrics & Gynecology
PROC: 10E0XZZ Delivery of Products of Conception, External Approach (ICD-10-PCS; principal; 2020-03-02)
PROC: 3E0R3BZ Introduction of Anesthetic Agent into Spinal Canal, Percutaneous Approach (ICD-10-PCS; 2020-03-02)
PROC: 00HU33Z Insertion of Infusion Device into Spinal Canal, Percutaneous Approach (ICD-10-PCS; 2020-03-02)
PROC: 0W8NXZZ Division of Female Perineum, External Approach (ICD-10-PCS; 2020-03-02)
DX: O76 Abnormality in fetal heart rate and rhythm complicating labor and delivery (principal); D62 Acute posthemorrhagic anemia; Z37.0 Single live birth; O62.2 Other uterine inertia; O90.81 Anemia of the puerperium; O34.211 Maternal care for low transverse scar from previous cesarean delivery; Z3A.00 Weeks of gestation of pregnancy not specified
CPT/HCPCS: 36415; 59025; 76815; 76819; 85014; 85018; 85025; 85027; 86592; 86850; 86900; 86901; 88307; G0378; J0290; J2210; J2590; J3010; J7120